=== PATIENT | male | born 1965 | race Two or more races ===

== ENCOUNTER 2023-01-26 23:24 | Inpatient (IN) | payer OTHER ==
[~2023-01-26] VITALS: Ht 167.6 cm; Wt 71.2 kg
[2023-01-27] MEDS ORDERED: PANTOPRAZOLE 80 MG in IV NS 0.9% 100 ML IV ONE ×2
[2023-01-27] MEDS ORDERED: ONDANSETRON HCL/PF 4 MG/2 ML VIAL IVP ONE
[2023-01-27] MEDS ORDERED: IV NS 0.9% 1,000 ML BAG IV ONE
[2023-01-27] MEDS: PANTOPRAZOLE 80 MG in IV NS 0.9% 500 ML IV ONE ×2 (00:10→01:10)
[2023-01-27] MEDS ORDERED: PANTOPRAZOLE 40 MG VIAL ONE (00:13)
[2023-01-27] MEDS ORDERED: ONDANSETRON HCL/PF 4 MG/2 ML VIAL ONE (00:35)
[2023-01-27 00:45] LABS: BASOPHILS # (AUTO) 0.1 K/uL (0.0-0.2); BASOPHILS % (AUTO) 0.8 % (0.0-2.0); EOSINOPHILS # (AUTO) 0.2 K/uL (0.0-0.7); EOSINOPHILS % (AUTO) 2.5 % (0.0-6.0); HEMATOCRIT 36 % (39-51); HEMOGLOBIN 12.2 g/dL (13.5-17.5); LYMPHOCYTES # (AUTO) 1.3 K/uL (0.8-4.8); MEAN CORPUSCULAR HEMOGLOBIN 29 PG (26.0-33.0); MEAN CORPUSCULAR HGB CONC 34 g/dl (31.0-36.0); MEAN CORPUSCULAR VOLUME 85 fL (80-96); MONOCYTES # (AUTO) 0.5 K/uL (0.1-1.30); MONOCYTES % (AUTO) 6.2 % (2.0-12.0); NEUTROPHILS # (AUTO) 6.1 K/uL (1.8-8.9); NEUTROPHILS % (AUTO) 74.5 % (43.0-81.0); PLATELET COUNT (AUTO) 235 K/uL (150-450); RED BLOOD CELL COUNT(AUTO) 4.26 MIL/uL (4.5-6.0); RED CELL DISTRIBUTION WIDTH 14.8 % (11.5-15.0); WHITE BLOOD COUNT (AUTO) 8.2 K/uL (4.3-11.0)
[2023-01-27 01:02] LABS: ALANINE AMINOTRANSFERASE 21 U/L (12-78); ALBUMIN 3.4 g/dL (3.4-5.0); ALKALINE PHOSPHATASE 170 U/L (46-116); ASPARTATE AMINOTRANSFERASE 25 U/L (15-37); BILIRUBIN,DIRECT 0.2 mg/dL (0.0-0.2); BILIRUBIN,TOTAL 0.3 mg/dL (0.2-1.0); CALCIUM, SERUM 10.2 mg/dL (8.5-10.1); CARBON DIOXIDE 32 mmol/L (21-32); CHLORIDE 94 mmol/L (98-107); CREATININE 0.6 mg/dL (0.6-1.3); GLUCOSE 92 mg/dL (74-106); POTASSIUM 4.1 mmol/L (3.5-5.1); SODIUM SERUM 134 mmol/L (136-145); TOTAL PROTEIN, SERUM 9.6 g/dL (6.4-8.2); UREA NITROGEN, BLOOD 25 mg/dL (7-18)
[2023-01-27 01:32] LABS: LIPASE 72 U/L (73-393)
[2023-01-27 02:23] LABS: APPEARANCE,URINE CLEAR (CLEAR); BILIRUBIN,URINE NEGATIVE (NEGATIVE); BLOOD, URINE NEGATIVE Ery/uL (NEGATIVE); COLOR,URINE DARK YELLOW (YELLOW); KETONES,URINE NEGATIVE (NEGATIVE); LEUKOCYTE ESTERASE ,URINE NEGATIVE (NEGATIVE); NITRITE, URINE NEGATIVE (NEGATIVE); PROTEIN,URINE TRACE mg/dl (NEGATIVE); UGLUCOSE NEGATIVE (NEGATIVE)
[2023-01-27 02:41] LABS: ADD URINE CULTURE NO; BACTERIA,URINE Rare /HPF (None Seen); MUCUS,URINE Rare /LPF (None Seen); RBC,URINE NONE SEEN /HPF (0-2); SQUAMOUS EPITHELIAL CELL,UR None Seen /HPF (None Seen); WBC,URINE NONE SEEN /HPF (0-3)
[2023-01-27] MEDS ORDERED: ONDANSETRON HCL/PF 4 MG/2 ML VIAL IVP PRN (03:00)
[2023-01-27] MEDS ORDERED: Z GUARD REMEDY 4 OZ OINT TP PRN (03:00)
[2023-01-27 07:00] VITALS: BP 98/67; TEMP 97.6; O2SAT 96
[2023-01-27 07:21] VITALS: BP 122/68; TEMP 98.3; O2SAT 96
[2023-01-27 08:00] VITALS: BP 102/66; TEMP 97.9; O2SAT 100
[2023-01-27] MEDS ORDERED: COLC0.6C3 GT (08:59)
[2023-01-27] MEDS ORDERED: BISA10SU11 RC (08:59)
[2023-01-27] MEDS ORDERED: *INS REG3 SQ (08:59)
[2023-01-27] MEDS ORDERED: SILV50CR32 TP (08:59)
[2023-01-27] MEDS ORDERED: DOCU50LI GT (08:59)
[2023-01-27] MEDS ORDERED: IBUP-1955 GT (08:59)
[2023-01-27] MEDS ORDERED: CHLO473M5 MM (08:59)
[2023-01-27] MEDS ORDERED: ACET-2605 GT (08:59)
[2023-01-27] MEDS ORDERED: POLY17PO4 GT (08:59)
[2023-01-27] MEDS ORDERED: IPRA4AER IH ×2 (08:59)
[2023-01-27] MEDS ORDERED: ACET-868 GT (08:59)
[2023-01-27] MEDS ORDERED: AMIN887L7 GT (08:59)
[2023-01-27] MEDS ORDERED: MAGN400O6 GT (08:59)
[2023-01-27] MEDS ORDERED: LEVO112T7 GT (08:59)
[2023-01-27] MEDS ORDERED: NA P133E RC (08:59)
[2023-01-27] MEDS ORDERED: RIFA300C4 GT (08:59)
[2023-01-27] MEDS ORDERED: INSU100I45 SQ (08:59)
[2023-01-27] MEDS ORDERED: METF-440 GT (08:59)
[2023-01-27] MEDS ORDERED: NUT.237L31 GT (08:59)
[2023-01-27] MEDS ORDERED: OXYC10TA49 GT (08:59)
[2023-01-27] MEDS ORDERED: ISON300T27 GT (08:59)
[2023-01-27] MEDS ORDERED: PYRI25TA3 GT (08:59)
[2023-01-27] MEDS ORDERED: PETR113O TP (08:59)
[2023-01-27] MEDS ORDERED: ONDA4TAB5 GT (08:59)
[2023-01-27] MEDS ORDERED: GABA250S2 GT (08:59)
[2023-01-27] MEDS ORDERED: BLOO-668 IN (08:59)
[2023-01-27] MEDS ORDERED: PANTOPRAZOLE 40 MG VIAL IV SCH (09:00)
[2023-01-27] MEDS: IV D5/0.45 NACL 1,000 ML IV PRN ×2 (09:38→22:56)
[2023-01-27] MEDS ORDERED: ALBUTEROL FS 2.5 MG/3 ML VIAL.NEB NEB PRN (11:00)
[2023-01-27] MEDS ORDERED: DEXTROSE 50%-WATER 50 ML DISP.SYRIN IV PRN (11:00)
[2023-01-27] MEDS: PANTOPRAZOLE 40 MG VIAL IV SCH ×2 (11:00→21:11)
[2023-01-27] MEDS ORDERED: LORAZEPAM INJ 2 MG/ML VIAL IV PRN (11:00)
[2023-01-27] MEDS ORDERED: SILVER SULFADIAZINE 50 GM JAR TP SCH (11:00)
[2023-01-27] MEDS ORDERED: IPRATROPIUM NEB FS 0.5 MG/2.5 ML AMPUL.NEB NEB PRN (11:00)
[2023-01-27] MEDS ORDERED: PYRIDOXINE HCL 50 MG TABLET GT SCH (11:19)
[2023-01-27 12:00] VITALS: BP 94/58; TEMP 98.2; O2SAT 100
[2023-01-27] MEDS: RIFAMPIN 300 MG CAPSULE GT SCH (12:09)
[2023-01-27] MEDS: ISONIAZID (300 MG) 300 MG TABLET GT SCH (12:09)
[2023-01-27] MEDS: BLOOD SUGAR DIAGNOSTIC 1 EACH STRIP IN SCH ×2 (12:23→17:28)
[2023-01-27 16:00] VITALS: BP 112/81; TEMP 97.8; O2SAT 100
[2023-01-27] MEDS: CHLORHEXIDINE GLUCONATE 15 ML UDC MM SCH (16:55)
[2023-01-27] MEDS ORDERED: CHLORHEXIDINE GLUCONATE 15 ML UDC MM SCH (17:00)
[2023-01-27] MEDS: MORPHINE SULFATE INJ 2 MG/ML DISP.SYRIN IV PRN (17:18)
[2023-01-27 18:27] LABS: HEMOGLOBIN 10.5 g/dL (13.5-17.5)
[2023-01-27 20:28] VITALS: BP 117/76; TEMP 98.1; O2SAT 100
[2023-01-28] VITALS (7 sets, daily range): BP systolic 116–142; BP diastolic 52–90; TEMP 97.4–98.8; O2SAT 96–100
[2023-01-28 00:03] LABS: HEMOGLOBIN 10.3 g/dL (13.5-17.5)
[2023-01-28] MEDS: BLOOD SUGAR DIAGNOSTIC 1 EACH STRIP IN SCH ×4 (00:04→17:26)
[2023-01-28] MEDS: MORPHINE SULFATE INJ 2 MG/ML DISP.SYRIN IV PRN ×2 (04:05→22:53)
[2023-01-28 06:16] LABS: BASOPHILS # (AUTO) 0.1 K/uL (0.0-0.2); BASOPHILS % (AUTO) 1.4 % (0.0-2.0); EOSINOPHILS # (AUTO) 0.6 K/uL (0.0-0.7); EOSINOPHILS % (AUTO) 9.1 % (0.0-6.0); HEMATOCRIT 31 % (39-51); HEMOGLOBIN 10.5 g/dL (13.5-17.5); LYMPHOCYTES # (AUTO) 1.7 K/uL (0.8-4.8); LYMPHOCYTES % (AUTO) 27.5 % (20.0-44.0); MEAN CORPUSCULAR HEMOGLOBIN 29 PG (26.0-33.0); MEAN CORPUSCULAR HGB CONC 34 g/dl (31.0-36.0); MEAN CORPUSCULAR VOLUME 86 fL (80-96); MONOCYTES # (AUTO) 0.6 K/uL (0.1-1.30); MONOCYTES % (AUTO) 10.2 % (2.0-12.0); NEUTROPHILS # (AUTO) 3.2 K/uL (1.8-8.9); NEUTROPHILS % (AUTO) 51.8 % (43.0-81.0); PLATELET COUNT (AUTO) 163 K/uL (150-450); RED BLOOD CELL COUNT(AUTO) 3.62 MIL/uL (4.5-6.0); RED CELL DISTRIBUTION WIDTH 14.1 % (11.5-15.0); WHITE BLOOD COUNT (AUTO) 6.2 K/uL (4.3-11.0)
[2023-01-28 06:44] LABS: CALCIUM, SERUM 9.2 mg/dL (8.5-10.1); CREATININE 0.5 mg/dL (0.6-1.3); MAGNESIUM 1.6 mg/dL (1.8-2.4); PHOSPHORUS 3.5 mg/dL (2.5-4.9); POTASSIUM 3.6 mmol/L (3.5-5.1)
[2023-01-28] MEDS ORDERED: ISONIAZID (300 MG) 300 MG TABLET GT SCH (09:00)
[2023-01-28] MEDS: ISONIAZID (300 MG) 300 MG TABLET GT SCH (09:08)
[2023-01-28] MEDS: PANTOPRAZOLE 40 MG VIAL IV SCH ×2 (09:08→22:03)
[2023-01-28] MEDS: LEVOTHYROXINE SODIUM 112 MCG TABLET GT SCH (09:08)
[2023-01-28] MEDS: RIFAMPIN 300 MG CAPSULE GT SCH (09:09)
[2023-01-28] MEDS: PYRIDOXINE HCL 50 MG TABLET GT SCH (09:09)
[2023-01-28] MEDS: CHLORHEXIDINE GLUCONATE 15 ML UDC MM SCH ×2 (09:09→16:32)
[2023-01-28] MEDS: DAKINS QUARTER STRENGTH (0.125%) 480 ML BOTTLE TOP SCH (10:27)
[2023-01-28] MEDS: Magnesium 1GM/D5W 100ML PREMIX 100 ML IV SCH ×2 (10:27→11:29)
[2023-01-28] MEDS ORDERED: PERMETHRIN 5% CRM 60 GM TUBE TP ONE (11:00)
[2023-01-28] MEDS: PIPERACILLIN /TAZOBACTAM 3.375 G in IV D5W 50 ML IV SCH ×3 (11:29→22:47)
[2023-01-28] MEDS ORDERED: GLUCERNA 1.5 1,000 ML BOTTLE GT SCH (14:30)
[2023-01-28] MEDS: IV D5/0.45 NACL 1,000 ML IV PRN (18:24)
[2023-01-29] MEDS: INSULIN REGULAR, HUMAN 100 UNIT/ML 3 ML VIAL SQ PRN ×3 (00:06→23:26)
[2023-01-29] MEDS: BLOOD SUGAR DIAGNOSTIC 1 EACH STRIP IN SCH ×5 (00:08→23:26)
[2023-01-29 04:00] VITALS: BP 116/78; TEMP 98.8; O2SAT 100
[2023-01-29] MEDS: PIPERACILLIN /TAZOBACTAM 3.375 G in IV D5W 50 ML IV SCH ×4 (05:10→23:09)
[2023-01-29 07:22] LABS: BASOPHILS % (AUTO) 0.8 % (0.0-2.0); EOSINOPHILS # (AUTO) 0.5 K/uL (0.0-0.7); EOSINOPHILS % (AUTO) 9.5 % (0.0-6.0); HEMATOCRIT 34 % (39-51); HEMOGLOBIN 11.2 g/dL (13.5-17.5); LYMPHOCYTES # (AUTO) 1.1 K/uL (0.8-4.8); LYMPHOCYTES % (AUTO) 20.5 % (20.0-44.0); MEAN CORPUSCULAR HEMOGLOBIN 29 PG (26.0-33.0); MEAN CORPUSCULAR HGB CONC 33 g/dl (31.0-36.0); MEAN CORPUSCULAR VOLUME 87 fL (80-96); MONOCYTES # (AUTO) 0.5 K/uL (0.1-1.30); MONOCYTES % (AUTO) 9.8 % (2.0-12.0); NEUTROPHILS # (AUTO) 3.3 K/uL (1.8-8.9); NEUTROPHILS % (AUTO) 59.4 % (43.0-81.0); PLATELET COUNT (AUTO) 217 K/uL (150-450); RED BLOOD CELL COUNT(AUTO) 3.91 MIL/uL (4.5-6.0); RED CELL DISTRIBUTION WIDTH 14.4 % (11.5-15.0); WHITE BLOOD COUNT (AUTO) 5.5 K/uL (4.3-11.0)
[2023-01-29] MEDS: LEVOTHYROXINE SODIUM 112 MCG TABLET GT SCH ×2 (07:53→09:29)
[2023-01-29 08:00] VITALS: BP 129/79; TEMP 98.2; O2SAT 99
[2023-01-29 08:03] LABS: CALCIUM, SERUM 9.3 mg/dL (8.5-10.1); CREATININE 0.5 mg/dL (0.6-1.3); POTASSIUM 3.1 mmol/L (3.5-5.1)
[2023-01-29] MEDS: PANTOPRAZOLE 40 MG VIAL IV SCH ×2 (09:28→21:34)
[2023-01-29] MEDS: ISONIAZID (300 MG) 300 MG TABLET GT SCH (09:30)
[2023-01-29] MEDS: RIFAMPIN 300 MG CAPSULE GT SCH (09:30)
[2023-01-29] MEDS: PYRIDOXINE HCL 50 MG TABLET GT SCH (09:30)
[2023-01-29] MEDS: CHLORHEXIDINE GLUCONATE 15 ML UDC MM SCH ×2 (09:37→18:08)
[2023-01-29] MEDS: DAKINS QUARTER STRENGTH (0.125%) 480 ML BOTTLE TOP SCH (09:37)
[2023-01-29] MEDS: IV D5/0.45 NACL 1,000 ML IV PRN (11:01)
[2023-01-29 12:00] VITALS: BP 129/79; TEMP 98.2; O2SAT 99
[2023-01-29] MEDS: POTASSIUM CL. PREMIX PERIPHER. 50 ML IV SCH ×4 (12:12→15:36)
[2023-01-29 16:00] VITALS: BP 124/74; TEMP 98.3; O2SAT 99
[2023-01-29] MEDS: MORPHINE SULFATE INJ 2 MG/ML DISP.SYRIN IV PRN ×2 (16:37→23:09)
[2023-01-29] MEDS: GLUCERNA 1.2 1,000 ML BOTTLE NG PRN (17:31)
[2023-01-29 20:00] VITALS: BP_SYST 104; BP_SYST 124; BP_DIAS 67; BP_DIAS 74; TEMP 98.3; TEMP 98.6; O2SAT 97; O2SAT 99
[2023-01-30] VITALS (7 sets, daily range): BP systolic 107–131; BP diastolic 63–83; TEMP 98.2–98.6; O2SAT 96–100
[2023-01-30] MEDS: PIPERACILLIN /TAZOBACTAM 3.375 G in IV D5W 50 ML IV SCH ×4 (04:56→22:11)
[2023-01-30] MEDS: IV D5/0.45 NACL 1,000 ML IV PRN (04:58)
[2023-01-30] MEDS: BLOOD SUGAR DIAGNOSTIC 1 EACH STRIP IN SCH ×3 (05:03→18:02)
[2023-01-30] MEDS: INSULIN REGULAR, HUMAN 100 UNIT/ML 3 ML VIAL SQ PRN (05:04)
[2023-01-30 07:09] LABS: BASOPHILS % (AUTO) 0.9 % (0.0-2.0); EOSINOPHILS # (AUTO) 0.7 K/uL (0.0-0.7); EOSINOPHILS % (AUTO) 12.7 % (0.0-6.0); HEMATOCRIT 33 % (39-51); HEMOGLOBIN 10.8 g/dL (13.5-17.5); LYMPHOCYTES # (AUTO) 1.5 K/uL (0.8-4.8); LYMPHOCYTES % (AUTO) 28.5 % (20.0-44.0); MEAN CORPUSCULAR HEMOGLOBIN 29 PG (26.0-33.0); MEAN CORPUSCULAR HGB CONC 33 g/dl (31.0-36.0); MEAN CORPUSCULAR VOLUME 86 fL (80-96); MONOCYTES # (AUTO) 0.6 K/uL (0.1-1.30); MONOCYTES % (AUTO) 11.3 % (2.0-12.0); NEUTROPHILS # (AUTO) 2.5 K/uL (1.8-8.9); NEUTROPHILS % (AUTO) 46.6 % (43.0-81.0); PLATELET COUNT (AUTO) 210 K/uL (150-450); RED BLOOD CELL COUNT(AUTO) 3.77 MIL/uL (4.5-6.0); RED CELL DISTRIBUTION WIDTH 14.2 % (11.5-15.0); WHITE BLOOD COUNT (AUTO) 5.3 K/uL (4.3-11.0)
[2023-01-30 07:13] LABS: CREATININE 0.5 mg/dL (0.6-1.3); POTASSIUM 3.3 mmol/L (3.5-5.1)
[2023-01-30] MEDS: PYRIDOXINE HCL 50 MG TABLET GT SCH (08:21)
[2023-01-30] MEDS: RIFAMPIN 300 MG CAPSULE GT SCH (08:22)
[2023-01-30] MEDS: ISONIAZID (300 MG) 300 MG TABLET GT SCH (08:22)
[2023-01-30] MEDS: PANTOPRAZOLE 40 MG VIAL IV SCH (08:23)
[2023-01-30] MEDS: DAKINS QUARTER STRENGTH (0.125%) 480 ML BOTTLE TOP SCH (09:01)
[2023-01-30] MEDS: CHLORHEXIDINE GLUCONATE 15 ML UDC MM SCH ×2 (09:01→17:20)
[2023-01-30] MEDS ORDERED: POTASSIUM CHLORIDE 20 MEQ POWDER PACKET PO ONE (11:00)
[2023-01-30] MEDS: MORPHINE SULFATE INJ 2 MG/ML DISP.SYRIN IV PRN ×2 (11:06→21:11)
[2023-01-30] MEDS: GLUCERNA 1.2 1,000 ML BOTTLE NG PRN (16:49)
[2023-01-30] MEDS: PANTOPRAZOLE 40 MG/PACK PACK GT SCH (21:10)
[2023-01-31] MEDS: INSULIN REGULAR, HUMAN 100 UNIT/ML 3 ML VIAL SQ PRN ×2 (00:19→05:56)
[2023-01-31] MEDS: BLOOD SUGAR DIAGNOSTIC 1 EACH STRIP IN SCH ×4 (00:19→18:08)
[2023-01-31 00:32] VITALS: BP 131/83; TEMP 98.6; O2SAT 97
[2023-01-31 04:00] VITALS: BP 146/85; TEMP 97.9; O2SAT 97
[2023-01-31] MEDS: PIPERACILLIN /TAZOBACTAM 3.375 G in IV D5W 50 ML IV SCH (04:01)
[2023-01-31] MEDS: MORPHINE SULFATE INJ 2 MG/ML DISP.SYRIN IV PRN ×3 (04:07→17:04)
[2023-01-31] MEDS: IV D5/0.45 NACL 1,000 ML IV PRN (05:43)
[2023-01-31 06:17] LABS: BASOPHILS % (AUTO) 0.7 % (0.0-2.0); EOSINOPHILS # (AUTO) 0.7 K/uL (0.0-0.7); EOSINOPHILS % (AUTO) 12.2 % (0.0-6.0); HEMATOCRIT 33 % (39-51); HEMOGLOBIN 10.8 g/dL (13.5-17.5); LYMPHOCYTES # (AUTO) 1.5 K/uL (0.8-4.8); LYMPHOCYTES % (AUTO) 27.2 % (20.0-44.0); MEAN CORPUSCULAR HEMOGLOBIN 28 PG (26.0-33.0); MEAN CORPUSCULAR HGB CONC 33 g/dl (31.0-36.0); MEAN CORPUSCULAR VOLUME 86 fL (80-96); MONOCYTES # (AUTO) 0.5 K/uL (0.1-1.30); MONOCYTES % (AUTO) 9.5 % (2.0-12.0); NEUTROPHILS # (AUTO) 2.8 K/uL (1.8-8.9); NEUTROPHILS % (AUTO) 50.4 % (43.0-81.0); PLATELET COUNT (AUTO) 207 K/uL (150-450); RED BLOOD CELL COUNT(AUTO) 3.82 MIL/uL (4.5-6.0); RED CELL DISTRIBUTION WIDTH 14.2 % (11.5-15.0); WHITE BLOOD COUNT (AUTO) 5.6 K/uL (4.3-11.0)
[2023-01-31 06:50] LABS: CALCIUM, SERUM 9.1 mg/dL (8.5-10.1); CREATININE 0.6 mg/dL (0.6-1.3); POTASSIUM 3.1 mmol/L (3.5-5.1)
[2023-01-31] MEDS: LEVOTHYROXINE SODIUM 112 MCG TABLET GT SCH (07:39)
[2023-01-31 08:00] VITALS: BP 114/82; TEMP 98.8; O2SAT 97
[2023-01-31] MEDS: PANTOPRAZOLE 40 MG/PACK PACK GT SCH (09:43)
[2023-01-31] MEDS: RIFAMPIN 300 MG CAPSULE GT SCH (09:43)
[2023-01-31] MEDS: PYRIDOXINE HCL 50 MG TABLET GT SCH (09:43)
[2023-01-31] MEDS: ISONIAZID (300 MG) 300 MG TABLET GT SCH (09:43)
[2023-01-31] MEDS: CHLORHEXIDINE GLUCONATE 15 ML UDC MM SCH ×2 (09:53→17:06)
[2023-01-31] MEDS: DAKINS QUARTER STRENGTH (0.125%) 480 ML BOTTLE TOP SCH (10:35)
[2023-01-31] MEDS ORDERED: POTASSIUM CHLORIDE 20 MEQ POWDER PACKET GT ONE (11:00)
[2023-01-31] MEDS ORDERED: PANT40TA2 GT (11:46)
[2023-01-31 12:00] VITALS: BP 116/72; TEMP 98.2; O2SAT 97
[2023-01-31] MEDS ORDERED: PIPERACILLIN /TAZOBACTAM 3.375 G in IV D5W 100 ML IV SCH (13:00)
[2023-01-31 16:00] VITALS: BP 123/77; TEMP 98.7; O2SAT 96
== END 2023-01-31 18:46 | DRG 241 ==
LOC: ER 23:27 → TELE1 01-27 05:30 → MEDSG1 01-27 15:00
PROVIDERS: ADMIT Nurse Practitioner Acute Care; ATTEND Nurse Practitioner Acute Care
PROC: 0D20XUZ Change Feeding Device in Upper Intestinal Tract, External Approach (ICD-10-PCS; principal; 2023-01-30)
PROC: 05H533Z Insertion of Infusion Device into Right Subclavian Vein, Percutaneous Approach (ICD-10-PCS; 2023-01-30)
PROC: B546ZZA Ultrasonography of Right Subclavian Vein, Guidance (ICD-10-PCS; 2023-01-30)
DX: K29.71 Gastritis, unspecified, with bleeding (principal); J96.20 Acute and chronic respiratory failure, unspecified whether with hypoxia or hypercapnia; L89.154 Pressure ulcer of sacral region, stage 4; E46 Unspecified protein-calorie malnutrition; D68.69 Other thrombophilia; J15.9 Unspecified bacterial pneumonia; K31.1 Adult hypertrophic pyloric stenosis; Z43.1 Encounter for attention to gastrostomy; E11.42 Type 2 diabetes mellitus with diabetic polyneuropathy; Z93.0 Tracheostomy status; E86.0 Dehydration; E03.9 Hypothyroidism, unspecified; D64.9 Anemia, unspecified; E83.52 Hypercalcemia; R13.10 Dysphagia, unspecified; Z86.11 Personal history of tuberculosis; Z74.09 Other reduced mobility; B86 Scabies; Z79.84 Long term (current) use of oral hypoglycemic drugs; Z68.25 Body mass index [BMI] 25.0-25.9, adult; Z20.822 Contact with and (suspected) exposure to COVID-19; N49.3 Fournier gangrene; Z79.4 Long term (current) use of insulin
CPT/HCPCS: 36415; 71045-TC; 71250-TC; 80048-TC; 80076-TC; 81001; 82962-TC; 83690-TC; 83735-TC; 84100-TC; 84484-TC; 85025-TC; 85027-TC; 86480; 87081-TC; 87086-TC; 87116; 87206; 94799-TC; A4223; C9113; G0378; J1815; J2270; J2405; J2543; J2704; J2765; J3475; J3480; J3490; J7030; J7040; J7060

== ENCOUNTER 2024-01-26 18:50 | Inpatient (IN) | payer MEDICAID, OTHER ==
[~2024-01-26] VITALS: Ht 165.1 cm; Wt 69.6 kg
[~2024-01-26 18:50] MED LIST: *INS REG3 SQ; ACET-2605 GT; ACET-868 GT; AMIN887L7 GT; BISA10SU11 RC; BLOO-668 IN; CHLO473M5 MM; COLC0.6C3 GT; DOCU50LI GT; GABA250S2 GT; INSU100I45 SQ; IPRA4AER IH; ISON300T27 GT; LEVO112T7 GT; MAGN400O6 GT; METF-440 GT; NA P133E RC; NUT.237L31 GT; ONDA4TAB5 GT; OXYC10TA49 GT; PANT40TA2 GT; PETR113O TP; POLY17PO4 GT; PYRI25TA3 GT; RIFA300C4 GT; SILV50CR32 TP
--- NOTE | 2024-01-26 19:00 | NUR ---
[facility]IB [facility] C/O G TUBE SITE PAIN, POSSIBLE INFECTION X 3 DAYS.
[2024-01-26] MEDS: IV NS 0.9% 1,000 ML BAG IV ONE (19:10)
[2024-01-26] MEDS ORDERED: ONDANSETRON HCL/PF 4 MG/2 ML VIAL ONE (19:11)
[2024-01-26] MEDS ORDERED: MORPHINE SULFATE INJ 4 MG/ML DISP.SYRIN ONE (19:11)
[2024-01-26] MEDS ORDERED: POLY119P17 GT (19:14)
--- NOTE | 2024-01-26 19:15 | NUR ---
20g IV established in the Left forearm
[2024-01-26 19:17] LABS: BASOPHILS % (AUTO) 0.5 % (0.0-2.0); EOSINOPHILS # (AUTO) 0.2 K/uL (0.0-0.7); EOSINOPHILS % (AUTO) 2.3 % (0.0-6.0); HEMATOCRIT 42 % (39-51); HEMOGLOBIN 13.7 g/dL (13.5-17.5); LYMPHOCYTES # (AUTO) 1.5 K/uL (0.8-4.8); LYMPHOCYTES % (AUTO) 15.6 % (20.0-44.0); MEAN CORPUSCULAR HEMOGLOBIN 29 PG (26.0-33.0); MEAN CORPUSCULAR HGB CONC 33 g/dl (31.0-36.0); MEAN CORPUSCULAR VOLUME 87 fL (80-96); MONOCYTES # (AUTO) 0.7 K/uL (0.1-1.30); MONOCYTES % (AUTO) 7.3 % (2.0-12.0); NEUTROPHILS # (AUTO) 6.9 K/uL (1.8-8.9); NEUTROPHILS % (AUTO) 74.3 % (43.0-81.0); PLATELET COUNT (AUTO) 198 K/uL (150-450); RED BLOOD CELL COUNT(AUTO) 4.76 MIL/uL (4.5-6.0); RED CELL DISTRIBUTION WIDTH 13.2 % (11.5-15.0); WHITE BLOOD COUNT (AUTO) 9.3 K/uL (4.3-11.0)
[2024-01-26] MEDS: ONDANSETRON HCL/PF 4 MG/2 ML VIAL IVP ONE (19:19)
[2024-01-26] MEDS: MORPHINE SULFATE INJ 2 MG/ML DISP.SYRIN IV ONE (19:20)
[2024-01-26 19:22] LABS: CALCIUM, SERUM 9.2 mg/dL (8.5-10.1); CREATININE 0.8 mg/dL (0.6-1.3); POTASSIUM 4.1 mmol/L (3.5-5.1)
[2024-01-26 19:27] LABS: ALBUMIN 3.6 g/dL (3.4-5.0); BILIRUBIN,DIRECT 0.1 mg/dL (0.0-0.2); BILIRUBIN,TOTAL 0.5 mg/dL (0.2-1.0); TOTAL PROTEIN, SERUM 8.6 g/dL (6.4-8.2)
--- NOTE | 2024-01-26 19:34 | NUR ---
URINE SAMPLE SENT TO LAB
[2024-01-26] MEDS ORDERED: IOHEXOL-300 100 ML VIAL IV ONE (19:53)
[2024-01-26] MEDS ORDERED: IV NS 0.9% 250 ML IV ONE (19:53)
[2024-01-26 19:54] LABS: APPEARANCE,URINE CLEAR (CLEAR); BILIRUBIN,URINE NEGATIVE (NEGATIVE); BLOOD, URINE 1+ Ery/uL (NEGATIVE); COLOR,URINE YELLOW (YELLOW); KETONES,URINE NEGATIVE (NEGATIVE); LEUKOCYTE ESTERASE ,URINE NEGATIVE (NEGATIVE); NITRITE, URINE NEGATIVE (NEGATIVE); PROTEIN,URINE 1+ mg/dl (NEGATIVE); UGLUCOSE NEGATIVE (NEGATIVE); UROBILINOGEN,URINE 0.2 EU/dL (0.2)
[2024-01-26 20:08] LABS: ADD URINE CULTURE NO; BACTERIA,URINE Rare /HPF (None Seen); MUCUS,URINE Few /LPF (None Seen); WBC,URINE 0-2 /HPF (0-3)
--- NOTE | 2024-01-26 21:30 | NUR ---
BED 325-2
--- NOTE | 2024-01-26 22:08 | NUR ---
REPORT GIVEN TO KRISHNA RN ROOM 325-2
[2024-01-26] MEDS ORDERED: Z GUARD REMEDY 4 OZ OINT TP PRN (22:30)
[2024-01-26] MEDS ORDERED: MAGNESIUM HYDROXIDE 30 ML UDC PO PRN (22:30)
[2024-01-26] MEDS ORDERED: ONDANSETRON HCL/PF 4 MG/2 ML VIAL IVP PRN (22:30)
[2024-01-26] MEDS ORDERED: DEXTROSE 50%-WATER 50 ML DISP.SYRIN IV PRN (22:30)
[2024-01-26 22:35] VITALS: BP 112/83; TEMP 99.1; O2SAT 94
[2024-01-26 22:40] VITALS: BP 112/83; TEMP 99.1; O2SAT 99
--- NOTE | 2024-01-26 23:00 | NUR ---
MS EDITOR MANAGING NEWSPAPER NOTE PATIENT ARRIVED AT ABOUT 10:33 PM, PT ALERT/ORIENTED X 4, PT ABLE TO MAKE NEEDS KNOWN, PATIENT RWANDAN SPEAKING ONLY. PATIENT STABLE ON RA, NO S/S OF DISTRESS OR SOB NOTED, BREATHING EVEN AND UNLABORED. VITAL SIGNS WNL, BP: 112/83, HR: 85, R: 19, SPO2: 99%, T: 99.1. IV ACCESS ON LEFT FOREARM #20G INTACT AND FLUSHING WELL. PATIENT HAS LLQ COLOSTOMY BAG, NO STOOL NOTED IN BAG, PER PATIENT BAG WAS JUST CHANGED TODAY. GTUBE REMOVED IN ER, DRESSING HAS MINIMAL BLEEDING. PATIENT REPORTS 2/10 ABDOMINAL PAIN AT THIS TIME. PATIENT ALSO NOTED WITH SACRAL WOUND SCAR, RIGHT THIGH SKIN GRAFT SCAR AND RIGHT FOOT ABRASION SCAB, PHOTOS TAKEN AND PLACED IN CHART. PATIENT BELONGINGS DOCUMENTED. PER PATIENT HE WAS HOSPITALIZED ABOUT 1.5 YEARS AGO, DURING THAT HOSPITALIZATION HE WAS INTUBATED AND HAD TB, PER PATIENT HE TOOK TB MEDICATION FOR A YEAR AFTER. PATIENT ALSO HAS HX OF BRANDO GANGRENE, SKIN GRAFT, GASTRITIS, OBSTRUCTION OF DUODENUM S/P COLOSTOMY BAG, DYSPHAGIA S/P GTUBE PLACEMENT, DM 2, AND HYPOTHYROIDISM. PATIENT RESIDES AT [facility], PER PATIENT AND FACILITY DOCUMENTATION, PATIENT HAD GTUBE BUT WAS STILL ON [facility] MECHANICAL SOFT DIET WITH THIN LIQUIDS. PATIENT BELONGINGS DOCUMENTED AND SHEET PLACED IN CHART. PER PATIENT HE HASN'T BEEN AMBULATORY SINCE LAST HOSPITALIZATION BUT GETS PT FOR BED MOBILITY AT FACILITY. INFORMED PATIENT THAT HE IS NPO, PT VERBALIZED UNDERSTANDING. PATIENT AWARE OF ADMISSION FOR GTUBE REPLACEMENT. ORIENTED PATIENT TO ROOM AND HOW TO USE CALL LIGHT. SAFETY MEASURES IN PLACE: CALL LIGHT AND TABLE WITHIN REACH, SIDE RAILS UP X 2, BED LOCKED IN LOWEST POSITION, HOB ELEVATED, BED ALARM ON. WILL CONTINUE PLAN OF CARE
[2024-01-26] MEDS: IV D5/ 0.9% NACL 1,000 ML IV SCH (23:24)
[2024-01-26] MEDS: BLOOD SUGAR DIAGNOSTIC 1 EACH STRIP IN SCH (23:40)
[2024-01-27] MEDS: MORPHINE SULFATE INJ 2 MG/ML DISP.SYRIN IV PRN (05:54)
--- NOTE | 2024-01-27 06:00 | NUR ---
MS RN NOTES COMPLAINED OF ABDOMINAL PAIN AROUND G TUBE SITE WITH PAIN SCORE OF 10/10. MORPHINE 4 MG IV GIVEN PRESCRIBED.
--- NOTE | 2024-01-27 06:50 | NUR ---
MS RN CLOSING NOTES PATIENT ASLEEP ON BED BUT EASILY AWAKENED. CANNOT UNDERSTAND MONGOLIAN AND PRIMARY LANGUAGE IS [place]. ALERT AND ORIENTED X 4. ABLE TO MAKE NEEDS KNOWN. ON ROOM AIR TOLERATING WELL AND WITH CLEAR AND NON LABORED BREATHING. DENIES ANY PAIN OR DISCOMFORT AT THIS TIME. WITH COLOSTOMY ON LEFT SIDE OF ABDOMEN NEAR PREVIOUS G TUBE SITE. IV ACCESS ON HIS LEFT FOREARM G#20 STILL PATENT, INTACT AND INFUSING D5NSS AT 75 ML/HR WELL. BLOOD SUGAR CHECKED ACCORDINGLY. KEPT SAFE AND COMFORTABLE. ALL NURSING NEEDS AND CONCERNS ATTENDED WELL. PATIENT KEPT NPO. ALL FALL AND SAFETY MEASURES MAINTAINED: BED IN LOWEST AND LOCKED POSITION, BED ALARM ON, SIDE RAILS X 2, CALL LIGHT AND TABLE PLACED WITHIN PATIENT'S REACH. WILL ENDORSE TO MORNING SHIFT RN FOR CONTINUITY OF CARE.
[2024-01-27 07:05] LABS: INR 1.05 (0.91-1.10); PROTHROMBIN TIME 11.1 SECS (9.2-11.1)
[2024-01-27 07:07] LABS: BASOPHILS % (AUTO) 0.4 % (0.0-2.0); EOSINOPHILS # (AUTO) 0.4 K/uL (0.0-0.7); HEMATOCRIT 35 % (39-51); HEMOGLOBIN 11.8 g/dL (13.5-17.5); LYMPHOCYTES # (AUTO) 2.6 K/uL (0.8-4.8); LYMPHOCYTES % (AUTO) 34.4 % (20.0-44.0); MEAN CORPUSCULAR HEMOGLOBIN 29 PG (26.0-33.0); MEAN CORPUSCULAR HGB CONC 33 g/dl (31.0-36.0); MEAN CORPUSCULAR VOLUME 88 fL (80-96); MONOCYTES # (AUTO) 0.8 K/uL (0.1-1.30); MONOCYTES % (AUTO) 10.7 % (2.0-12.0); NEUTROPHILS # (AUTO) 3.7 K/uL (1.8-8.9); NEUTROPHILS % (AUTO) 49.5 % (43.0-81.0); PLATELET COUNT (AUTO) 181 K/uL (150-450); RED BLOOD CELL COUNT(AUTO) 4.03 MIL/uL (4.5-6.0); RED CELL DISTRIBUTION WIDTH 13.1 % (11.5-15.0); WHITE BLOOD COUNT (AUTO) 7.4 K/uL (4.3-11.0)
--- NOTE | 2024-01-27 07:19 | NUR ---
MS RN NOTE RECEIVED PATIENT IN BED ASLEEP BUT EASILY WOKEN UP. PATIENT IS ALERT AND ORIENTED X 4, ABLE TO MAKE NEEDS KNOWN. ON ROOM AIR WITH EQUAL AND UNLABORED BREATHING WITH NO SIGNS OF DISTRESS. PATIENT DENIES PAIN OR DISCOMFORT AT THIS TIME. WITH IV ACCESS ON THE LEFT FOREARM G20 WITH IVF D5NS RUNNING AT 75ML/HR INFUSING WELL. WITH DRESSING ON THE LEFT UPPER ABDOMEN, DRY AND INTACT. WITH LLQ COLOSTOMY WITH GOOD STOMA COLOR - PINKISH. COLOSTOMY BAG INTACT. SAFETY MEASURES ENSURED WITH BED ON LOW LOCKED POSITION, ALARM ON, SIDERAILS UP AND CALL LIGHT WITHIN REACH AT ALL TIMES. CONTINUING PLAN OF CARE.
[2024-01-27 07:25] LABS: CALCIUM, SERUM 8.4 mg/dL (8.5-10.1); CREATININE 0.7 mg/dL (0.6-1.3); MAGNESIUM 1.7 mg/dL (1.8-2.4); PHOSPHORUS 4.1 mg/dL (2.5-4.9); POTASSIUM 3.8 mmol/L (3.5-5.1)
[2024-01-27 08:00] VITALS: BP 97/71; TEMP 98.4; O2SAT 95
[2024-01-27] MEDS: PANTOPRAZOLE 40 MG VIAL IV SCH (08:17)
--- NOTE | 2024-01-27 09:13 | NUR ---
WOUND CARE CONSULT: PT SEEN WITH DR FORDE FOR RT FOOT DRY LESION, PRESENT ON ADMISSION. SACRAL SCARRING AND RT THIGH SCARRING ALSO NOTED. DISCUSSED SKIN PROTECTION WITH NURSING STAFF. PT DEMONSTRATES ABILITY TO TURN AND REPOSITION IN BED. M D IN AGREEMENT WITH PLAN OF CARE.
[2024-01-27] MEDS: CLOTRIMAZOLE/BETAMETASONE DIPROPIONATE 15 GM TUBE TP SCH (11:00)
[2024-01-27] MEDS: Magnesium 1GM/D5W 100ML PREMIX 100 ML IV SCH (12:02)
--- NOTE | 2024-01-27 12:16 | NUR ---
MS RN NOTE BP 113/67 COMPLAINED OF PAIN. PAIN MED MORPHINE 2ML GIVEN FOR PAIN LEVEL O8/10 ORDERED
[2024-01-27 16:00] VITALS: BP_SYST 121; BP_SYST 155; BP_DIAS 63; BP_DIAS 67; TEMP 98.5; O2SAT 96
--- NOTE | 2024-01-27 19:10 | NUR ---
MS RN NOTE PATIENT REMAINED STABLE. COMFORT MEASURES PROVIDED. PATIENT GIVEN IC E CHIPS FOR RELIEF OF MOUTH DRYNESS. REVIEWED PATIENT'S FILE AND PATIENT IS ON MECHANICAL SOFT DIET WITH THIN LIQUIDS IN THE FACILITY. HOSPITALIST NOTIFIED WITH ORDER TO DO SPEECH THERAPIST TO EVALUATE PATIENT. NEEDS ATTENDED. IN STABLE CONDITION. ENDORSED TO NEXT SHIFT FOR CONTINUITY OF CARE.
--- NOTE | 2024-01-27 19:20 | NUR ---
MS RN OPENING NOTE RECEIVED PATIENT AWAKE IN BED, A/O X 4, ABLE TO MAKE NEEDS KNOWN. ON ROOM AIR, BREATHING EVENLY AND NO DISTRESS NOTED. WITH IV ACCESS ON LFA G#20 INFUSING WITH D5NS AT 75 ML/HR. ENCOURAGED VERBALIZATION OF NEEDS. SAFETY MEASURES IMPLEMENTED, BED LOCKED AND IN LOWEST POSITION, SIDE RAILS UP X 2, CALL LIGHT AND TABLE WITHIN REACH, BED ALARM ON. WILL CONTINUE PLAN OF CARE
[2024-01-27 20:30] VITALS: BP 138/78; TEMP 98.6; O2SAT 95
[2024-01-27 20:45] VITALS: BP 138/78; TEMP 98.6; O2SAT 95
--- NOTE | 2024-01-27 20:56 | NUR ---
MS RN NOTE PATIENT COMPLAINED ON ABDOMEN WITH A SCORE OF 8/10. MORPHINE IV PRN GIVEN AT 2016H. PATIENT VERBALIZED FEELING BETTER UPON REASSESSMENT
[2024-01-27] MEDS: INSULIN REGULAR, HUMAN 100 UNIT/ML 3 ML VIAL SQ PRN (23:25)
--- NOTE | 2024-01-28 01:50 | NUR ---
MS RN NOTE PATIENT CALLED AND ASKED FOR ANOTHER DOSE OF PAIN MEDICATION HE'S COMPLAINING OF PAIN ON HIS ABDOMEN WITH A SCORE OF 8/10. ADMINISTERED MORPHINE IV PRN PRESCRIBED AT 0121H. PATIENT TOLERATED WELL.
[2024-01-28 06:36] LABS: BASOPHILS % (AUTO) 0.7 % (0.0-2.0); EOSINOPHILS # (AUTO) 0.4 K/uL (0.0-0.7); EOSINOPHILS % (AUTO) 7.2 % (0.0-6.0); HEMATOCRIT 37 % (39-51); HEMOGLOBIN 12.4 g/dL (13.5-17.5); LYMPHOCYTES % (AUTO) 37.7 % (20.0-44.0); MEAN CORPUSCULAR HEMOGLOBIN 29 PG (26.0-33.0); MEAN CORPUSCULAR HGB CONC 34 g/dl (31.0-36.0); MEAN CORPUSCULAR VOLUME 87 fL (80-96); MONOCYTES # (AUTO) 0.6 K/uL (0.1-1.30); MONOCYTES % (AUTO) 10.4 % (2.0-12.0); NEUTROPHILS # (AUTO) 2.4 K/uL (1.8-8.9); PLATELET COUNT (AUTO) 193 K/uL (150-450); RED BLOOD CELL COUNT(AUTO) 4.23 MIL/uL (4.5-6.0); RED CELL DISTRIBUTION WIDTH 12.9 % (11.5-15.0); WHITE BLOOD COUNT (AUTO) 5.4 K/uL (4.3-11.0)
--- NOTE | 2024-01-28 06:42 | NUR ---
MS RN CLOSING NOTE PATIENT RESTING IN BED, A/O X 4, ABLE TO MAKE NEEDS KNOWN. STABLE ON ROOM AIR, BREATHING EVENLY AND NO DISTRESS NOTED. WITH IV ACCESS ON LFA G#20 INFUSING WITH D5NS AT 75 ML/HR-INTACT AND PATENT. ADMINISTERED MEDICATIONS PRESCRIBED. NEEDS ATTENDED. SAFETY MEASURES IMPLEMENTED, BED LOCKED AND IN LOWEST POSITION, SIDE RAILS UP X 2, CALL LIGHT AND TABLE WITHIN REACH, BED ALARM ON. WILL ENDORSE TO AM NURSE FOR KARY
[2024-01-28 07:41] LABS: CALCIUM, SERUM 8.8 mg/dL (8.5-10.1); CREATININE 0.6 mg/dL (0.6-1.3); POTASSIUM 3.7 mmol/L (3.5-5.1)
[2024-01-28 08:31] VITALS: BP 126/81; TEMP 98.2; O2SAT 97
[2024-01-28] MEDS: Magnesium 1GM/D5W 100ML PREMIX 100 ML IV SCH (10:11)
--- NOTE | 2024-01-28 12:08 | NUR ---
MS RN NOTE REFUSED INSULIN COVERAGE FOR BS OF 151MG/DL BACAUSE HE SAID HE JUST HAD 1 CUP OF APPLE SAUCE WHEN HE HAD SPEECH THERAPY SHANELLE
[2024-01-28 16:11] VITALS: BP 125/78; TEMP 98.9; O2SAT 98
[2024-01-28] MEDS ORDERED: MORPHINE SULFATE INJ 2 MG/ML DISP.SYRIN SQ PRN (16:30)
[2024-01-28] MEDS: IV D5/ 0.9% NACL 1,000 ML IV PRN (16:56)
--- NOTE | 2024-01-28 19:12 | NUR ---
MS RN NOTE NEEDS ATTENDED. COMFORT MEASURES PROVIDED. ABLE TO TOLERATE ORAL FEEDING. ENDORSED TO NEXT SHIFT FOR CONTINUITY OF CARE.
--- NOTE | 2024-01-28 19:30 | NUR ---
MS RN OPENING NOTE RECEIVED PATIENT AWAKE IN BED, A/O X 4, ABLE TO MAKE NEEDS KNOWN. STABLE ON ROOM AIR, BREATHING EVENLY AND NO DISTRESS NOTED. WITH IV ACCESS ON LFA G#20 INFUSING WITH D5NS AT 75 ML/HR. ENCOURAGED VERBALIZATION OF NEEDS. SAFETY MEASURES IMPLEMENTED, BED LOCKED AND IN LOWEST POSITION, SIDE RAILS UP X 2, CALL LIGHT AND TABLE WITHIN REACH, BED ALARM ON. PLAN OF CARE ONGOING
[2024-01-28 20:00] VITALS: BP 126/74; TEMP 98.2; O2SAT 97
[2024-01-28] MEDS: MORPHINE SULFATE INJ 2 MG/ML DISP.SYRIN IV PRN (20:30)
--- NOTE | 2024-01-28 21:00 | NUR ---
MS RN NOTE PATIENT COMPLAINED OF PAIN AND ASKED FOR PAIN MEDICATION. MORPHINE 2MG IV PRN GIVEN AT 2030H. PATIENT STATED PAIN WAS DECREASED UPON REASSESSMENT.
--- NOTE | 2024-01-29 03:05 | NUR ---
MS RN NOTE PATIENT ASKED FOR ANOTHER DOSE OF PAIN MEDICATION DUE TO A PAIN SCORE OF 8/10. MORPHINE 2MG IV ADMINISTERED AT 0241H. PATIENT TOLERATED WELL.
[2024-01-29 06:34] LABS: BASOPHILS % (AUTO) 0.5 % (0.0-2.0); EOSINOPHILS # (AUTO) 0.4 K/uL (0.0-0.7); EOSINOPHILS % (AUTO) 6.5 % (0.0-6.0); HEMATOCRIT 39 % (39-51); LYMPHOCYTES % (AUTO) 34.2 % (20.0-44.0); MEAN CORPUSCULAR HEMOGLOBIN 29 PG (26.0-33.0); MEAN CORPUSCULAR HGB CONC 33 g/dl (31.0-36.0); MEAN CORPUSCULAR VOLUME 87 fL (80-96); MONOCYTES # (AUTO) 0.4 K/uL (0.1-1.30); MONOCYTES % (AUTO) 7.7 % (2.0-12.0); NEUTROPHILS # (AUTO) 2.9 K/uL (1.8-8.9); NEUTROPHILS % (AUTO) 51.1 % (43.0-81.0); PLATELET COUNT (AUTO) 209 K/uL (150-450); RED BLOOD CELL COUNT(AUTO) 4.52 MIL/uL (4.5-6.0); RED CELL DISTRIBUTION WIDTH 13.1 % (11.5-15.0); WHITE BLOOD COUNT (AUTO) 5.7 K/uL (4.3-11.0)
--- NOTE | 2024-01-29 06:46 | NUR ---
MS RN CLOSING NOTE PATIENT RESTING IN BED, A/O X 4, ABLE TO MAKE NEEDS KNOWN. STABLE ON ROOM AIR, BREATHING EVENLY AND NO DISTRESS NOTED. WITH IV ACCESS ON LFA G#20 INFUSING WITH D5NS AT 75 ML/HR. WITH COLOSTOMY BAG IN LLQ - DRAINED AND CHANGED BAG. ADMINISTERED MEDICATIONS PRESCRIBED. NEEDS ATTENDED. NO COMPLAINTS OF PAIN AND DISCOMFORT AT THIS TIME. SAFETY MEASURES IMPLEMENTED, BED LOCKED AND IN LOWEST POSITION, SIDE RAILS UP X 2, CALL LIGHT AND TABLE WITHIN REACH, BED ALARM ON. WILL ENDORSE TO AM NURSE FOR KARY
[2024-01-29 07:03] LABS: CALCIUM, SERUM 9.2 mg/dL (8.5-10.1); CREATININE 0.7 mg/dL (0.6-1.3); POTASSIUM 3.7 mmol/L (3.5-5.1)
--- NOTE | 2024-01-29 07:11 | NUR ---
MS RN OPENING NOTE RECEIVED PATIENT SLEEPING COMFORTABLY IN BED, EASILY AWAKEN. A/OX4 AND ABLE TO MAKE NEEDS KNOWN. ON ROOM AIR, BREATHING IS EVEN AND UNLABORED. DENIES PAIN/DISCOMFORT AT THIS TIME. SKIN IS DRY AND WARM TO TOUCH. IV ACCESS SITE ON LEFT FOREARM #20G INTACT AND PATENT. D5 NS @75ML/HR RUNNING AND INFUSING WELL. ENSURES SAFETY, BED ON LOWEST POSITION AND LOCKED. BED SIDE RAILS UP AND CALL LIGHT WITHIN REACH AT ALL TIMES.
[2024-01-29 08:00] VITALS: BP 123/80; TEMP 98.2; O2SAT 98
--- NOTE | 2024-01-29 11:57 | NUR ---
MS RN NOTE PATIENT IS AWAKE, A/OX4, SITTING UP IN BED AND EATING LUNCH. PATIENT DENIES PAIN/DISCOMFORT AT THIS TIME. SKIN IS DRY AND WARM TO TOUCH. NO S/S OF HYPO/HYPERGLYCEMIA NOTED.
--- NOTE | 2024-01-29 15:34 | NUR ---
MS RN NOTE PATIENT C/O 8/10 PAIN, ADMINISTERED MEDICATION ORDERED.
[2024-01-29 16:00] VITALS: BP 125/72; TEMP 98.3; O2SAT 98
--- NOTE | 2024-01-29 18:50 | NUR ---
MS RN CLOSING NOTE PATIENT REMAINED STABLE ALL THROUGHOUT SHIFT. A/OX4, SINHALA SPEAKING WITH LIMITED YORUBA BUT ABLE TO MAKE NEEDS KNOWN. ON ROOM AIR, NO SOB NOTED AND NOT IN RESPIRATORY DISTRESS. SKIN IS DRY AND WARM TO TOUCH. IV ACCESS SITE ON LEFT FOREARM #20G, INTACT AND PATENT. DENIES PAIN/DISCOMFORT AT THIS TIME. NO FURTHER CONCERNS VERBALIZED. PATIENT KEPT CLEAN, DRY AND COMFORTABLE. MAINTAINED SAFETY MEASURES. BED ON LOWEST POSITION AND LOCKED. BED SIDE RAILS UP AND CALL LIGHT WITHIN REACH AT ALL TIMES.
--- NOTE | 2024-01-29 19:00 | NUR ---
MS RN OPENING NOTE RECEIVED PATIENT AWAKE IN BED, EASILY AWAKEN. A/OX4, ABLE TO MAKE NEEDS KNOWN. ON ROOM AIR, BREATHING IS EVENLY AND UNLABORED. NO S/SX OF ANY ACUTE RESPIRATORY DISTRESS NOTED NOR SOB/ AT THI THIS TIME. DENIES PAIN/DISCOMFORT AT THIS TIME. SKIN IS DRY AND WARM TO TOUCH. IV ACCESS SITE ON LEFT FOREARM #20G INTACT, PATENT AND INFUSING WITH D5 NS @75ML/HR . ALL FALL AND SAFETY PRECAUTIONS IN PLACED: BED IN LOWEST POSITION AND LOCKED. BED SIDE RAILS UP AND CALL LIGHT WITHIN REACH AT ALL TIMES. PLAN OF CARE ONGOING.
[2024-01-29 20:00] VITALS: BP_SYST 108; BP_SYST 120; BP_DIAS 61; BP_DIAS 69; TEMP 101.3; TEMP 98.8; O2SAT 96; O2SAT 97
--- NOTE | 2024-01-29 21:36 | NUR ---
RN NOTES MORPHINE 2MG/1ML IV PRN GIVEN ORDERED PT COMPLAINS OF ABDOMEN AND LEFT KNEE PAIN. WILL REASSESS IN 30 MINUTES. PLAN OF CARE ONGOING.
--- NOTE | 2024-01-30 04:34 | NUR ---
RN NOTES MORPHINE 2MG/1ML IV PRN GIVEN ORDERED PT COMPLAINS OF LEFT LEG PAIN 02/07. WILL REASSESS IN 30 MINUTES. PLAN OF CARE ONGOING.
[2024-01-30 06:03] LABS: BASOPHILS % (AUTO) 0.6 % (0.0-2.0); EOSINOPHILS # (AUTO) 0.4 K/uL (0.0-0.7); EOSINOPHILS % (AUTO) 6.2 % (0.0-6.0); HEMATOCRIT 39 % (39-51); HEMOGLOBIN 12.9 g/dL (13.5-17.5); LYMPHOCYTES # (AUTO) 1.8 K/uL (0.8-4.8); LYMPHOCYTES % (AUTO) 27.7 % (20.0-44.0); MEAN CORPUSCULAR HEMOGLOBIN 29 PG (26.0-33.0); MEAN CORPUSCULAR HGB CONC 33 g/dl (31.0-36.0); MEAN CORPUSCULAR VOLUME 87 fL (80-96); MONOCYTES # (AUTO) 0.5 K/uL (0.1-1.30); NEUTROPHILS # (AUTO) 3.8 K/uL (1.8-8.9); NEUTROPHILS % (AUTO) 58.5 % (43.0-81.0); PLATELET COUNT (AUTO) 225 K/uL (150-450); RED BLOOD CELL COUNT(AUTO) 4.44 MIL/uL (4.5-6.0); WHITE BLOOD COUNT (AUTO) 6.5 K/uL (4.3-11.0)
[2024-01-30 06:27] LABS: CALCIUM, SERUM 8.9 mg/dL (8.5-10.1); CREATININE 0.6 mg/dL (0.6-1.3); MAGNESIUM 1.7 mg/dL (1.8-2.4); PHOSPHORUS 3.2 mg/dL (2.5-4.9); POTASSIUM 3.2 mmol/L (3.5-5.1)
--- NOTE | 2024-01-30 06:44 | NUR ---
MS RN CLOSING NOTE RECEIVED PATIENT AWAKE IN BED, EASILY AWAKEN. A/OX4, ABLE TO MAKE NEEDS KNOWN. ON ROOM AIR, BREATHING IS EVENLY AND UNLABORED. NO S/SX OF ANY ACUTE RESPIRATORY DISTRESS NOTED NOR SOB/ AT THI THIS TIME. DENIES PAIN/DISCOMFORT AT THIS TIME. SKIN IS DRY AND WARM TO TOUCH. IV ACCESS SITE ON LEFT FOREARM #20G INTACT, PATENT AND INFUSING WITH D5 NS @75ML/HR. PT HAS COLOSTOMY DRAINING BROWNISH STOOL, NO REDNESS NOTED AROUND THE STOMA: SKIN WNL. ALL NEEDS ATTENDED, ALL DUE MEDS GIVEN ORDERED, KEPT PT CLEAN AND DRY. PT EXPRESSES NO FURTHER CONCERN. ALL FALL AND SAFETY PRECAUTIONS IN PLACED: BED IN LOWEST AND LOCKED. BED SIDE RAILS UP AND CALL LIGHT WITHIN REACH AT ALL TIMES. WILL ENDORSE TO AM NURSE FOR KARY.
[2024-01-30 07:30] VITALS: BP 127/81; TEMP 98.6; O2SAT 98
--- NOTE | 2024-01-30 07:31 | NUR ---
RN OPENING NOTE Received pt in bed, awake. A/O x 4, able to make needs known, no c/o pain/discomfort at this time. On room air, tolerating well. IV access in LFA #20g, running D5NS at 75ml/hr. With colostomy in LLQ abdomen. Safety measures maintained. Will continue with plan of care.
[2024-01-30] MEDS: PANTOPRAZOLE 40 MG TABLET.DR PO SCH (08:44)
[2024-01-30] MEDS: POTASSIUM CHLORIDE 20 MEQ POWDER PACKET PO ONE (08:44)
[2024-01-30] MEDS: Magnesium 1GM/D5W 100ML PREMIX 100 ML IV SCH (08:53)
--- NOTE | 2024-01-30 11:33 | NUR ---
RN NOTE Pt verbalized left leg pain with scale of 8/10, Morphine sulfate inj 2mg/ml prn given, will continue to monitor.
[2024-01-30 16:00] VITALS: BP 121/85; TEMP 98.8; O2SAT 98
--- NOTE | 2024-01-30 18:23 | NUR ---
RN NOTE Pt verbalized left leg pain with scale of 8/10, Morphine sulfate inj 2mg/ml prn given, will continue to monitor.
--- NOTE | 2024-01-30 18:46 | NUR ---
RN CLOSING NOTE Pt resting in bed. A/O x 4, no c/o pain/discomfort at this time. On room air, tolerating well. IV access in LFA #20g, running D5NS at 75ml/hr. With colostomy in LLQ abdomen. Needs attended. Safety measures maintained. Will endorse riaz to lime kiln and recausticizing operator.
--- NOTE | 2024-01-30 19:20 | NUR ---
MS RN OPENING NOTES RECEIVED PATIENT AWAKE IN BED. A/O X 4. ON ROOM AIR, BREATHING EVEN AND UNLABORED, SATURATING @ 99%. IV ACCESS LEFT FOREARM #20G WITH IV FLUID RUNNING D5NS @ 75 ML/HR, INFUSING WELL. SAFETY MEASURES IN PLACE WITH BED IN LOWEST LOCKED POSITION, SIDE RAILS UP X 2, CALL LIGHT AND TRAY WITHIN EASY REACH. PLAN OF CARE ONGOING.
--- NOTE | 2024-01-30 19:30 | NUR ---
MS PORRAS OPENING NOTES RECEIVED PATIENT AWAKE IN BED, SON AT BEDSIDE. A/O X 4. ON ROOM AIR, BREATHING EVEN AND UNLABORED, SATURATING @ 96%. IV ACCESS LEFT ANTECUBITAL #18G WITH IV FLUID RUNNING KCL 20 MEQS IN D5 1/2 NS @ 75 ML/HR, INFUSING WELL. SAFETY MEASURES IN PLACE WITH BED IN LOWEST LOCKED POSITION, SIDE RAILS UP X 2, CALL LIGHT AND TRAY WITHIN EASY REACH. PLAN OF CARE ONGOING. Addendum: 01/30/24 at 1947 by VINH HOLLOWAY RN WRONG PATIENT
[2024-01-30 20:00] VITALS: BP 131/73; TEMP 98.3; O2SAT 99
--- NOTE | 2024-01-31 06:05 | NUR ---
RN NOTES- PATIENT C/O OF LEG PAIN WITH PAIN LEVEL OF 8/10. MORPHINE IV GIVEN PRN FOR PAIN. DENIES ANY ACUTE RESPIRATORY DISTRESS AT THIS TIME. PLAN OF CARE ONGOING.
--- NOTE | 2024-01-31 06:30 | NUR ---
MS RN CLOSING NOTES PATIENT AWAKE IN BED. A/O X 4. ON ROOM AIR, BREATHING EVEN AND UNLABORED, SATURATING @ 99%. IV ACCESS LEFT FOREARM #20G WITH IV FLUID RUNNING D5NS @ 75 ML/HR, INFUSING WELL. ALL NEEDS ATTENDED. SAFETY MEASURES MAINTAINED DURING SHIFT. WILL ENDORSE TO THE NEXT NURSE ON DUTY FOR CONTINUITY OF CARE.
[2024-01-31 06:52] LABS: BASOPHILS % (AUTO) 0.6 % (0.0-2.0); EOSINOPHILS # (AUTO) 0.4 K/uL (0.0-0.7); EOSINOPHILS % (AUTO) 5.7 % (0.0-6.0); HEMATOCRIT 40 % (39-51); HEMOGLOBIN 13.1 g/dL (13.5-17.5); LYMPHOCYTES # (AUTO) 1.9 K/uL (0.8-4.8); LYMPHOCYTES % (AUTO) 30.8 % (20.0-44.0); MEAN CORPUSCULAR HEMOGLOBIN 29 PG (26.0-33.0); MEAN CORPUSCULAR HGB CONC 33 g/dl (31.0-36.0); MEAN CORPUSCULAR VOLUME 88 fL (80-96); MONOCYTES # (AUTO) 0.5 K/uL (0.1-1.30); MONOCYTES % (AUTO) 7.5 % (2.0-12.0); NEUTROPHILS # (AUTO) 3.5 K/uL (1.8-8.9); NEUTROPHILS % (AUTO) 55.4 % (43.0-81.0); PLATELET COUNT (AUTO) 225 K/uL (150-450); RED BLOOD CELL COUNT(AUTO) 4.52 MIL/uL (4.5-6.0); RED CELL DISTRIBUTION WIDTH 12.9 % (11.5-15.0); WHITE BLOOD COUNT (AUTO) 6.3 K/uL (4.3-11.0)
[2024-01-31 07:29] LABS: ALBUMIN 2.9 g/dL (3.4-5.0); BILIRUBIN,TOTAL 0.5 mg/dL (0.2-1.0); CALCIUM, SERUM 8.7 mg/dL (8.5-10.1); CREATININE 0.6 mg/dL (0.6-1.3); MAGNESIUM 2.1 mg/dL (1.8-2.4); PHOSPHORUS 3.3 mg/dL (2.5-4.9); POTASSIUM 3.5 mmol/L (3.5-5.1); TOTAL PROTEIN, SERUM 7.7 g/dL (6.4-8.2)
[2024-01-31 08:21] VITALS: BP 126/85; TEMP 98.1; O2SAT 96
--- NOTE | 2024-01-31 15:29 | NUR ---
RN NOTE Pt verbalized left leg pain with scale of 8/10, Morphine sulfate inj 2mg/ml prn given, will continue to monitor.
[2024-01-31 16:21] VITALS: BP 123/76; TEMP 98.6; O2SAT 96
--- NOTE | 2024-01-31 18:54 | NUR ---
RN CLOSING NOTE Pt resting in bed. A/O x 4, no c/o pain/discomfort at this time. On room air, tolerating well. IV access in LFA #20g, running D5NS at 75ml/hr. With colostomy in LLQ abdomen. Needs attended. Safety measures maintained. Will endorse riaz to night nurse.
--- NOTE | 2024-01-31 19:27 | NUR ---
MS RN OPENING NOTE RECEIVED PATIENT RESTING IN BED, AWAKE, A/OX 4, VERBALLY RESPONSIVE AND ABLE TO MAKE NEEDS KNOWN, STABLE ON ROOM AIR, NO DISTRESS NOTED, WITH IV ACCESS IN LFA #20G RUNNING D5NS AT 75ML/HR INTACT , PATENT AND INFUSING WELL. WITH COLOSTOMY BAG AT LUQ ABDOMEN IN PLACE,CLEAN DRY AND INTACT. SAFETY MEASURES MAINTAINED; BED IN LOWEST AND LOCKED POSITION,BED ALARM ON, HOB SLIGHTLY ELEVATED, CALL LIGHT AND TRAY TABLE WITHIN EASY TO REACH, CONTINUE MONITORING.
[2024-01-31 20:00] VITALS: BP 130/76; TEMP 98.2; O2SAT 96
--- NOTE | 2024-01-31 21:33 | NUR ---
RN NOTES PATIENT C/O LEG PAIN WITH SCALE OF 8/10, PATIENT REQUESTED PAIN MEDS, PRN MORPHINE 2MG/ML GIVEN ORDERED, VITAL SIGN STABLE;BP;130/76, NM;61, RR; 19, TEMP; 98.2, O2SAT; 96%. CONTINUE MONITORING.
[2024-02-01] MEDS: ACETAMINOPHEN 325 MG TABLET PO PRN (02:17)
--- NOTE | 2024-02-01 02:17 | NUR ---
RN NOTES PATIENT C/O HEADACHE, PATIENT REQUESTED PAIN MEDS, PRN TYLENOL GIVEN ORDERED, CONTINUE MONITORING.
--- NOTE | 2024-02-01 05:39 | NUR ---
RN NOTES PATIENT C/O LEG PAIN WITH SCALE OF 8/10, PATIENT REQUESTED PAIN MEDS, PRN MORPHINE 2MG/ML GIVEN ORDERED, VITAL SIGN STABLE;BP;129/74, NJ;60, RR; 18, TEMP; 97.9, O2SAT; 96%. CONTINUE MONITORING.
--- NOTE | 2024-02-01 06:46 | NUR ---
MS RN CLOSING NOTE PATIENT RESTING IN BED, AWAKE, A/OX 4, VERBALLY RESPONSIVE AND ABLE TO MAKE NEEDS KNOWN, STABLE ON ROOM AIR, NO DISTRESS NOTED, NO C/O DISCOMFORT /PAIN, WITH IV ACCESS IN LFA #20G RUNNING D5NS AT 75ML/HR INTACT PATENT AND INFUSING WELL. WITH NEW COLOSTOMY BAG AT LUQ ABDOMEN IN PLACE,CLEAN, DRY AND INTACT. KEPT PATIENT CLEAN,DRY AND COMFORTABLE, ALL DUE MEDS GIVEN ORDERED, CARE/NEEDS ATTENDED WELL. SAFETY MEASURES MAINTAINED; BED IN LOWEST AND LOCKED POSITION,BED ALARM ON, HOB SLIGHTLY ELEVATED, CALL LIGHT AND TRAY TABLE WITHIN EASY TO REACH,WILL ENDORSED TO AM NURSE FOR CONTINUITY OF CARE.
[2024-02-01 08:00] VITALS: BP 135/78; TEMP 98.2; O2SAT 98
[2024-02-01 16:00] VITALS: BP 143/80; TEMP 98.6; O2SAT 99
--- NOTE | 2024-02-01 17:01 | NUR ---
DISCHARGE NOTE PATIENT A/Ox4 ON ROOM AIR MACEDONIAN SPEAKING, WITH NO S/S OF SOB. THROUGHOUT SHIFT WAS COOPERATIVE AND COMPLIANT TO CARE. TOLERATING INTAKE WELL, NO S/S OF DIFFICULTY SWALLOWING. PATIENT ABLE TO ASSIST WITH BED MOBILITY UNABLE TO AMBULATE ALONE, USES WHEELCHAIR PER PT RESPONSE. USING URINAL. PATIENT D/C INSTRUCTION GIVEN TO PT AND FACILITY. REPORT GIVEN TO ELISABET PORRAS. ALL QUESTIONS AND CONCERNS ADDRESSED AT THIS TIME. IV ACCESS ON THE LFA G20 REMOVED AND PRESSURE DRESSING APPLIED. BELONGINGS ACCOUNTED FOR . PATIENT LEFT UNIT VIA GURNEY ACCOMPANIED 2 EMT. CHARGE NURSE AWARE.
== END 2024-02-01 16:55 | DRG 252 ==
LOC: ER 18:56 → MED 22:18
PROVIDERS: ATTEND Internal Medicine
DX: K94.23 Gastrostomy malfunction (principal); J96.10 Chronic respiratory failure, unspecified whether with hypoxia or hypercapnia; G61.81 Chronic inflammatory demyelinating polyneuritis; D63.8 Anemia in other chronic diseases classified elsewhere; E87.1 Hypo-osmolality and hyponatremia; E11.40 Type 2 diabetes mellitus with diabetic neuropathy, unspecified; B35.3 Tinea pedis; E03.9 Hypothyroidism, unspecified; M10.9 Gout, unspecified; G60.9 Hereditary and idiopathic neuropathy, unspecified; R13.10 Dysphagia, unspecified; Z79.4 Long term (current) use of insulin; K31.89 Other diseases of stomach and duodenum; Z90.49 Acquired absence of other specified parts of digestive tract; Y83.3 Surgical operation with formation of external stoma as the cause of abnormal reaction of the patient, or of later complication, without mention of misadventure at the time of the procedure; Y92.129 Unspecified place in nursing home as the place of occurrence of the external cause; R29.3 Abnormal posture; Z98.890 Other specified postprocedural states; Z79.890 Hormone replacement therapy; Z79.84 Long term (current) use of oral hypoglycemic drugs; Z79.899 Other long term (current) drug therapy; L24.B1 Irritant contact dermatitis related to digestive stoma or fistula
CPT/HCPCS: 36415; 71045-TC; 80048-TC; 80053-TC; 80076-TC; 81001; 82962-TC; 83690-TC; 83735-TC; 84100-TC; 85025-TC; 85610-TC; 87081-TC; 92526; 92611-TC; 97110-TC; 97530-TC; A4223; G0378; J1815; J2270; J2405; J2470; J3475; J7030; J7042; J7050; Q9967